=== PATIENT | female | born 2000 | race Caucasian/White ===

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

== ENCOUNTER 2021-03-23 01:45 | Inpatient (IN) | payer OTHER ==
[~2021-03-23 01:45] MED LIST changes: +DEXTROSE 5%-LACTATED RINGERS 1,000 ML IV SCH; -DEXTROSE 5%-LACTATED RINGERS 500 ML IV ONE
[2021-03-23] MEDS ORDERED: AMPICILLIN - 2 GM in SODIUM CHLORIDE 100 ML IVPB ONE (03:00)
[2021-03-23] MEDS ORDERED: AMPICILLIN SODIUM 2 GM VIAL ONE (03:00)
[2021-03-23 03:11] LABS: BASO % 0.1 % (0-2.0); EOS % 0.3 % (0-4.5); HEMATOCRIT 30.5 % (32.4-45.2); HEMOGLOBIN 10.3 GM/dL (10.7-15.3); LYMPH % 23.7 % (8-40); MCH 30.7 pg (25.7-33.7); MCHC 33.6 g/dl (32.0-36.0); MEAN CELL VOLUME 91.4 fl (80-96); MONO % 7.3 % (3.8-10.2); NEUT % 68.6 % (42.8-82.8); PLATELET COUNT 190 10^3/uL (134-434); RBC 3.34 M/mm3 (3.60-5.2); RDW 13.6 % (11.6-15.6); WHITE BLOOD COUNT 11.8 K/mm3 (4.0-10.0)
[2021-03-23 03:18] VITALS: BMI 30.2
[2021-03-23 03:28] LABS: INR 0.93 (0.83-1.09); PROTHROMBIN TIME (PATIENT) 11.3 SEC (9.7-13.0)
[2021-03-23 03:32] LABS: CALCIUM 8.2 mg/dL (8.5-10.1)
[2021-03-23 03:33] LABS: ALBUMIN 2.6 g/dl (3.4-5.0); BLOOD UREA NITROGEN 9.9 mg/dL (7-18)
[2021-03-23 03:37] LABS: BILIRUBIN,TOTAL 0.4 mg/dL (0.2-1)
[2021-03-23 03:38] LABS: TOT PROT 6.2 g/dl (6.4-8.2)
[2021-03-23 03:46] LABS: CREATININE 0.4 mg/dL (0.55-1.3)
[2021-03-23 04:29] LABS: HIV INTERPRETATION NEGATIVE (NEGATIVE)
[2021-03-23] MEDS ORDERED: AMPICILLIN - 1 GM in SODIUM CHLORIDE 100 ML IVPB SCH (07:00)
[2021-03-23] MEDS ORDERED: AMPICILLIN SODIUM 1 GM VIAL ONE (07:05)
[2021-03-23] MEDS ORDERED: BUTORPHANOL TARTRATE 1 MG/ML VIAL IVPB PRN (10:47)
[2021-03-23] MEDS ORDERED: OXYTOCIN 30 UNITS in 0.9% NS 30 UNIT/500 ML INFUS.BAG IVPB ONE (10:59)
[2021-03-23] MEDS ORDERED: ELECTROLYTE-148 SOLN 1,000 ML IV SCH (11:00)
[2021-03-23] MEDS ORDERED: PROMETHAZINE HCL 25 MG/1 ML VIAL IVPUSH ONE (11:00)
[2021-03-23] MEDS ORDERED: OXYTOCIN 30 UNITS in 0.9% NS 30 UNIT/500 ML INFUS.BAG IVPB SCH (11:00)
[2021-03-23] MEDS ORDERED: PROMETHAZINE HCL 25 MG/1 ML VIAL ONE (11:26)
[2021-03-23] MEDS ORDERED: BUTORPHANOL TARTRATE 2 MG/ML VIAL ONE (11:26)
[2021-03-23] MEDS ORDERED: FENTANYL/BUPIVACAINE/NS/PF - PCEA - 50 ML DISP.SYRIN EP ONE (13:07)
[2021-03-23] MEDS ORDERED: NALOXONE HCL 0.4 MG/ML VIAL IVPUSH PRN (13:16)
[2021-03-23] MEDS ORDERED: BUPIVACAINE HCL/PF 0.25% (2.5MG/ML) 10 ML VIAL ONE (13:18)
[2021-03-23] MEDS ORDERED: FENTANYL/BUPIVACAINE/NS/PF - PCEA - 50 ML DISP.SYRIN EP SCH (13:30)
[2021-03-23] MEDS ORDERED: OXYTOCIN 20 UNITS in 0.9% NS 20 UNIT/1,000 ML INFUS.BAG IV ONE (15:45)
[2021-03-23] MEDS ORDERED: BENZOCAINE 20% 57 GM BOTTLE TP PRN (15:55)
[2021-03-23] MEDS ORDERED: BISACODYL 10 MG SUPP.RECT PR PRN (15:55)
[2021-03-23] MEDS ORDERED: METHYLERGONOVINE MALEATE 0.2 MG/1 ML AMP IM PRN (15:55)
[2021-03-23] MEDS ORDERED: WITCH HAZEL 50% (TUCKS) 40 PAD/JAR PAD TP PRN (15:55)
[2021-03-23] MEDS ORDERED: BENZOCAINE 28 GM HEMORRHOIDAL OINTMENT PR PRN (15:55)
[2021-03-23] MEDS ORDERED: OXYTOCIN 20 UNITS in 0.9% NS 20 UNIT/1,000 ML INFUS.BAG IV SCH (16:00)
[2021-03-23] MEDS ORDERED: PCA PUMP NR ONE (16:40)
[2021-03-23] MEDS: IBUPROFEN 600 MG TABLET (FP) PO PRN ×2 (18:16→22:12)
[2021-03-23] MEDS: ACETAMINOPHEN 325 MG TABLET (FP) PO PRN ×2 (18:17→22:11)
[2021-03-24 07:36] LABS: BASO % 0.3 % (0-2.0); EOS % 0.4 % (0-4.5); HEMATOCRIT 36.3 % (32.4-45.2); HEMOGLOBIN 11.8 GM/dL (10.7-15.3); LYMPH % 29.5 % (8-40); MCH 30.5 pg (25.7-33.7); MCHC 32.6 g/dl (32.0-36.0); MEAN CELL VOLUME 93.6 fl (80-96); MEAN PLT VOLUME 9.2 fl (7.5-11.1); MONO % 8.4 % (3.8-10.2); NEUT % 61.4 % (42.8-82.8); PLATELET COUNT 185 10^3/uL (134-434); RBC 3.88 M/mm3 (3.60-5.2); RDW 13.6 % (11.6-15.6); WHITE BLOOD COUNT 13.2 K/mm3 (4.0-10.0)
[2021-03-24] MEDS: IBUPROFEN 600 MG TABLET (FP) PO PRN ×2 (07:41→17:07)
[2021-03-24] MEDS: ACETAMINOPHEN 325 MG TABLET (FP) PO PRN ×2 (07:42→17:08)
[2021-03-24 12:41] LABS: POC NITRAZINE POS
[2021-03-25] MEDS: ACETAMINOPHEN 325 MG TABLET (FP) PO PRN (05:01)
[2021-03-25] MEDS: IBUPROFEN 600 MG TABLET (FP) PO PRN (05:01)
[2021-03-25 12:44] VITALS: BP 127/83; PULSE 71; TEMP 97.8
== END 2021-03-25 13:00 | disposition home or self-care (01) | DRG 560 ==
LOC: JLDR 01:45 → J3W 17:50
PROVIDERS: ADMIT Obstetrics & Gynecology; ATTEND Obstetrics & Gynecology
PROC: 10E0XZZ Delivery of Products of Conception, External Approach (ICD-10-PCS; principal; 2021-03-23)
DX: O69.81X0 Labor and delivery complicated by cord around neck, without compression, not applicable or unspecified (principal); Z3A.37 37 weeks gestation of pregnancy; Z37.0 Single live birth
CPT/HCPCS: 36415; 59409; 80053; 83986-QW; 85025; 85610; 85730; 86762; 86780; 86850; 86900; 86901; 87340; 87389; C9803; U0003; U0005

== ENCOUNTER 2022-05-28 22:21 | Emergency (ER) | payer OTHER ==
[2022-05-28 22:28] VITALS: RESP 18; TEMP 99.1; BMI 24.1
[2022-05-28] MEDS ORDERED: ONDANSETRON 4 MG/2 ML VIAL IVPUSH ONE (23:24)
[2022-05-28] MEDS ORDERED: SODIUM CHLORIDE 1,000 ML IV STA (23:24)
[2022-05-28] MEDS ORDERED: ONDANSETRON 4 MG/2 ML VIAL ONE ×2 (23:28→23:38)
[2022-05-28 23:48] LABS: BASO % 0.1 % (0-2.0); EOS % 0.5 % (0-4.5); HEMATOCRIT 40.2 % (32.4-45.2); HEMOGLOBIN 13.7 GM/dL (10.7-15.3); LYMPH % 7.9 % (8-40); MCH 31.8 pg (25.7-33.7); MEAN CELL VOLUME 93.5 fl (80-96); MEAN PLT VOLUME 9.1 fl (7.5-11.1); MONO % 4.3 % (3.8-10.2); NEUT % 87.2 % (42.8-82.8); PLATELET COUNT 194 10^3/uL (134-434); RDW 13.1 % (11.6-15.6); WHITE BLOOD COUNT 12.5 K/mm3 (4.0-10.0)
[2022-05-29 00:29] LABS: ALBUMIN 3.6 g/dl (3.4-5.0); BILIRUBIN,TOTAL 0.8 mg/dL (0.2-1); BLOOD UREA NITROGEN 12.5 mg/dL (7-18); CALCIUM 8.6 mg/dL (8.5-10.1); CREATININE 0.6 mg/dL (0.55-1.3); TOT PROT 7.5 g/dl (6.4-8.2)
[2022-05-29 01:20] LABS: EPI CELLS 29 /uL (0-25.1); HYALINE CASTS 1 /uL (0-3.1); PH,URINE 8.5 (5.0-8.0); URINE APPEARANCE CLEAR; URINE BACTERIA 166 /uL (0-1359); URINE BILIRUBIN NEGATIVE (NEGATIVE); URINE COLOR YELLOW; URINE GLUCOSE (UA) NEGATIVE (NEGATIVE); URINE KETONE TRACE (NEGATIVE); URINE LEUK ESTERASE TRACE (NEGATIVE); URINE NITRITE NEGATIVE (NEGATIVE); URINE PROTEIN TRACE (NEGATIVE); URINE RBC 10 /uL (0-23.9); URINE WBC 10 /uL (0-25.8)
[2022-05-29] MEDS ORDERED: ACETAMINOPHEN 1000 MG/100 ML BAG IVPB ONE (01:37)
[2022-05-29] MEDS ORDERED: FAMOTIDINE 20 MG/50 ML IVPB 20 MG/50 ML MG IVPB ONE ×2 (01:37→01:51)
[2022-05-29] MEDS ORDERED: ACETAMINOPHEN INJECTION 100 ML IVPB ONE (01:51)
[2022-05-29 03:44] VITALS: BP 93/56; PULSE 77
[2022-05-29] MEDS ORDERED: SODIUM CHLORIDE 0.9% 500 ML INFUS.BAG IV ONE (03:47)
== END 2022-05-29 05:42 | disposition home or self-care (01) ==
LOC: JER 22:21
PROC: 3E0333Z Introduction of Anti-inflammatory into Peripheral Vein, Percutaneous Approach (ICD-10-PCS; principal; 2022-05-28)
PROC: 3E033GC Introduction of Other Therapeutic Substance into Peripheral Vein, Percutaneous Approach (ICD-10-PCS; 2022-05-28)
PROC: 3E033GC Introduction of Other Therapeutic Substance into Peripheral Vein, Percutaneous Approach (ICD-10-PCS; 2022-05-28)
PROC: 3E0337Z Introduction of Electrolytic and Water Balance Substance into Peripheral Vein, Percutaneous Approach (ICD-10-PCS; 2022-05-28)
DX: R11.2 Nausea with vomiting, unspecified (principal); R19.7 Diarrhea, unspecified; R10.9 Unspecified abdominal pain
CPT/HCPCS: 36415; 76705-TC; 80053; 81003; 83690; 84703; 85025; 87086; 99284-25

== ENCOUNTER 2022-08-19 14:36 | Emergency (ER) | payer OTHER ==
[2022-08-19 15:05] VITALS: BP 98/62; RESP 18; TEMP 99.9; BMI 23.8
[2022-08-19] MEDS ORDERED: IBUPROFEN 600 MG TABLET (FP) PO ONE ×2 (16:36→17:01)
[2022-08-19 17:45] VITALS: PULSE 87
[2022-08-19 18:06] LABS: THROAT:GRP A STREP NOT DETECTED (NOTDETECTED)
== END 2022-08-19 17:57 | disposition home or self-care (01) ==
LOC: JER 14:36
DX: B34.9 Viral infection, unspecified (principal)
CPT/HCPCS: 0241U-QW; 87651; 99283-25

== ENCOUNTER 2023-03-08 16:09 | Emergency (ER) | payer OTHER ==
[2023-03-08 16:17] VITALS: RESP 18; BMI 27.1
[2023-03-08] MEDS ORDERED: ACETAMINOPHEN 325 MG TABLET (FP) PO ONE (17:45)
[2023-03-08] MEDS ORDERED: ACETAMINOPHEN 325 MG TABLET (FP) ONE (18:25)
[2023-03-08 18:48] LABS: EPI CELLS >36 /uL (0-25.1); HYALINE CASTS 0 /uL (0-3.1); URINE APPEARANCE CLEAR; URINE BACTERIA 494 /uL (0-1359); URINE BILIRUBIN NEGATIVE (NEGATIVE); URINE COLOR YELLOW; URINE GLUCOSE (UA) NEGATIVE (NEGATIVE); URINE KETONE TRACE (NEGATIVE); URINE LEUK ESTERASE 1+ (NEGATIVE); URINE NITRITE NEGATIVE (NEGATIVE); URINE PROTEIN NEGATIVE (NEGATIVE); URINE RBC 6 /uL (0-23.9); URINE WBC 23 /uL (0-25.8)
[2023-03-08] MEDS ORDERED: CEPHALEXIN MONOHYDRATE 500 MG CAPSULE (UD) PO ONE (19:14)
[2023-03-08] MEDS ORDERED: CEPHALEXIN MONOHYDRATE 500 MG CAPSULE (UD) ONE (19:23)
[2023-03-08] MEDS ORDERED: CEPHALEXIN MONOHYDRATE 500 MG CAPSULE (UD) PO SCH (22:00)
[2023-03-08] MEDS ORDERED: OSELTAMIVIR PHOSPHATE 75 MG CAPSULE PO SCH (22:00)
[2023-03-08 23:19] VITALS: BP 111/56; PULSE 95; TEMP 98.7
== END 2023-03-08 23:45 | disposition home or self-care (01) ==
LOC: JERFT 16:09 → JER 16:09
DX: O26.892 Other specified pregnancy related conditions, second trimester (principal); R51.9 Headache, unspecified; O99.512 Diseases of the respiratory system complicating pregnancy, second trimester; J02.9 Acute pharyngitis, unspecified; R05.9 Cough, unspecified; O23.92 Unspecified genitourinary tract infection in pregnancy, second trimester; R82.71 Bacteriuria; Z3A.25 25 weeks gestation of pregnancy; Z20.822 Contact with and (suspected) exposure to COVID-19
CPT/HCPCS: 0241U-QW; 76801-TC; 81003; 87070; 87086; 87651; 99284-25

== ENCOUNTER 2023-06-07 20:12 | Inpatient (IN) | payer OTHER ==
[2023-06-07] MEDS ORDERED: DEXTROSE 5%-LACTATED RINGERS 500 ML IV ONE (21:00)
[2023-06-07] MEDS ORDERED: DEXTROSE 5%-LACTATED RINGERS 1,000 ML IV SCH (22:00)
[2023-06-07] MEDS ORDERED: AMPICILLIN SODIUM 2 GM VIAL ONE (22:07)
[2023-06-07] MEDS ORDERED: AMPICILLIN - 2 GM in SODIUM CHLORIDE 100 ML IVPB ONE (22:22)
[2023-06-07] MEDS ORDERED: ELECTROLYTE-148 SOLN 1,000 ML IV SCH (22:30)
[2023-06-07 22:31] VITALS: BMI 29.2
[2023-06-07 22:36] LABS: EOS % 0.3 % (0-4.5); HEMATOCRIT 29.1 % (32.4-45.2); HEMOGLOBIN 9.6 GM/dL (10.7-15.3); LYMPH % 23.9 % (8-40); MCH 26.9 pg (25.7-33.7); MCHC 33.2 g/dl (32.0-36.0); MEAN PLT VOLUME 8.6 fl (7.5-11.1); MONO % 7.7 % (3.8-10.2); NEUT % 68.1 % (42.8-82.8); PLATELET COUNT 191 10^3/uL (134-434); RBC 3.59 M/mm3 (3.60-5.2); RDW 17.2 % (11.6-15.6); WHITE BLOOD COUNT 10.4 K/mm3 (4.0-10.0)
[2023-06-07 23:00] LABS: POTASSIUM 3.9 mmol/L (3.5-5.1)
[2023-06-07 23:01] LABS: BLOOD UREA NITROGEN 8.1 mg/dL (7-18); CALCIUM 7.9 mg/dL (8.5-10.1)
[2023-06-07 23:04] LABS: CREATININE 0.4 mg/dL (0.55-1.3)
[2023-06-07 23:27] LABS: ACTIVATED PTT 28.6 SECONDS (25.2-36.5); INR 0.95 (0.83-1.09)
[2023-06-07] MEDS ORDERED: FENTANYL/BUPIVACAINE/NS/PF - PCEA - 50 ML DISP.SYRIN EP ONE (23:33)
[2023-06-08] MEDS ORDERED: AMPICILLIN SODIUM 1 GM VIAL ONE (01:13)
[2023-06-08] MEDS: AMPICILLIN - 1 GM in SODIUM CHLORIDE 100 ML IVPB SCH ×3 (01:15→19:54)
[2023-06-08] MEDS ORDERED: OXYTOCIN 20 UNITS in 0.9% NS 20 UNIT/1,000 ML INFUS.BAG IV ONE (01:30)
[2023-06-08] MEDS ORDERED: LIDOCAINE HCL 1% PRESERVATIVE FREE - 30ML VIAL ONE (01:30)
[2023-06-08] MEDS ORDERED: NALOXONE HCL 0.4 MG/ML VIAL IVPUSH PRN (01:48)
[2023-06-08] MEDS ORDERED: FENTANYL/BUPIVACAINE/NS/PF - PCEA - 50 ML DISP.SYRIN EP SCH (02:00)
[2023-06-08] MEDS ORDERED: WITCH HAZEL 50% (TUCKS) 40 PAD/JAR PAD TP PRN (05:14)
[2023-06-08] MEDS ORDERED: BENZOCAINE 28 GM HEMORRHOIDAL OINTMENT TP PRN (05:14)
[2023-06-08] MEDS ORDERED: BISACODYL 10 MG SUPP.RECT RC PRN (05:14)
[2023-06-08] MEDS ORDERED: BENZOCAINE 20% 57 GM BOTTLE TP PRN (05:14)
[2023-06-08] MEDS ORDERED: METHYLERGONOVINE MALEATE 0.2 MG/1 ML AMP IM PRN (05:14)
[2023-06-08] MEDS ORDERED: OXYTOCIN 20 UNITS in 0.9% NS 20 UNIT/1,000 ML INFUS.BAG IV SCH (05:15)
[2023-06-08] MEDS: IBUPROFEN 600 MG TABLET (FP) PO PRN ×3 (05:25→13:21)
[2023-06-08] MEDS: PRENATAL VITAMINS W/ FOLIC ACID TABLET (FP) PO SCH (09:15)
[2023-06-08] MEDS: ACETAMINOPHEN 325 MG TABLET (FP) PO PRN ×2 (14:13→23:32)
[2023-06-08] MEDS ORDERED: ACETAMINOPHEN 1000 MG/100 ML BAG IVPB PRN (15:41)
[2023-06-08] MEDS ORDERED: SODIUM CHLORIDE 500 ML IV STA (15:43)
[2023-06-08] MEDS: LACTATED RINGERS SOLUTION 1,000 ML IV SCH (16:29)
[2023-06-09 07:04] LABS: BASO % 0.4 % (0-2.0); EOS % 0.4 % (0-4.5); HEMATOCRIT 28.1 % (32.4-45.2); HEMOGLOBIN 8.9 GM/dL (10.7-15.3); LYMPH % 31.3 % (8-40); MCH 26.3 pg (25.7-33.7); MCHC 31.8 g/dl (32.0-36.0); MEAN CELL VOLUME 82.7 fl (80-96); MEAN PLT VOLUME 8.7 fl (7.5-11.1); MONO % 7.6 % (3.8-10.2); NEUT % 60.3 % (42.8-82.8); PLATELET COUNT 171 10^3/uL (134-434); RDW 16.8 % (11.6-15.6); WHITE BLOOD COUNT 11.6 K/mm3 (4.0-10.0)
[2023-06-09] MEDS: IBUPROFEN 600 MG TABLET (FP) PO PRN ×3 (07:46→18:06)
[2023-06-09] MEDS: ACETAMINOPHEN 325 MG TABLET (FP) PO PRN (09:21)
[2023-06-09] MEDS: PRENATAL VITAMINS W/ FOLIC ACID TABLET (FP) PO SCH (09:21)
[2023-06-09] MEDS: ACETAMINOPHEN/CAFFEINE/BUTALBITAL 1 TAB PO PRN ×3 (12:21→23:52)
[2023-06-09] MEDS: LACTATED RINGERS SOLUTION 1,000 ML IV SCH (16:24)
[2023-06-09] MEDS ORDERED: SENNOSIDES/DOCUSATE COMBO (SENNA PLUS) TABLET (UD) PO PRN (22:00)
[2023-06-10] MEDS: IBUPROFEN 600 MG TABLET (FP) PO PRN (01:44)
[2023-06-10] MEDS: ACETAMINOPHEN/CAFFEINE/BUTALBITAL 1 TAB PO PRN ×2 (09:10→16:29)
[2023-06-10] MEDS: PRENATAL VITAMINS W/ FOLIC ACID TABLET (FP) PO SCH (09:12)
[2023-06-10 11:59] VITALS: BP 113/70; PULSE 70; RESP 17; TEMP 98.5
== END 2023-06-10 16:40 | disposition home or self-care (01) | DRG 560 ==
LOC: JDEL 20:12 → JLDR 22:00 → J3W 06-08 07:56
PROVIDERS: ADMIT Obstetrics & Gynecology; ATTEND Obstetrics & Gynecology
PROC: 10E0XZZ Delivery of Products of Conception, External Approach (ICD-10-PCS; principal; 2023-06-08)
DX: O80 Encounter for full-term uncomplicated delivery (principal); Z3A.39 39 weeks gestation of pregnancy; Z37.0 Single live birth
CPT/HCPCS: 36415; 80048; 85025; 85610; 85730; 86780; 86850; 86900; 86901